=== PATIENT | male | born 1980 | race Caucasian/White ===

== ENCOUNTER 2018-03-21 08:37 | Emergency (ER) | payer BC ==
[~2018-03-21] VITALS: Ht 180.3 cm; Wt 90.9 kg
[2018-03-21 09:34] LABS: HEMATOCRIT 53.8 % (38.0-50.0); HEMOGLOBIN 18.5 G/DL (12.5-16.6); MCH 31.3 PG (29.0-34.0); MCHC 34.4 G/DL (30.0-36.0); MCV 90.9 FL (86-99); PLATELET COUNT 224 K/uL (156-360); RBC DIS.WIDTH-CV 12.5 % (11.8-14.6); RBC DIS.WIDTH-SD 41.2 % (39-53); RED BLOOD COUNT 5.92 M/uL (4.00-5.50); WHITE BLOOD COUNT 7.1 K/uL (4.1-10.2)
[2018-03-21 09:36] LABS: ALBUMIN 5.1 g/dL (3.2-4.8); CHLORIDE 100 mEq/L (99-109); POTASSIUM 4.3 mEq/L (3.7-5.4); SODIUM 134 mEq/L (136-147)
[2018-03-21 09:39] LABS: GLUCOSE 139 mg/dL (70-99); TOTAL PROTEIN 8.7 g/dL (6.4-8.3)
[2018-03-21 09:42] LABS: ALKALINE PHOSPHATASE 118 IU/L (3-129); CREATININE 1.4 mg/dL (0.6-1.3); GFR ESTIMATE (CALCULATED) > 59 mL/min/ (58.99-99999)
[2018-03-21 09:43] LABS: UREA NITROGEN (BUN) 20 mg/dL (9-23)
[2018-03-21 09:44] LABS: AST (GOT) 36 IU/L (2-34)
[2018-03-21 09:45] LABS: ALT (GPT) 38 IU/L (3-49)
[2018-03-21 10:54] LABS: APPEARANCE CLEAR ((CLEAR)); BILIRUBIN NEGATIVE; BLOOD NEGATIVE; COLOR AMBER ((YELLOW)); GLUCOSE (STRIP) NEGATIVE; KETONES 5; LEUKOCYTES NEGATIVE; NITRITE NEGATIVE; PROTEIN (STRIP) 30; SPECIFIC GRAVITY 1.033 (1.000-1.030); UCUL ADDED? NO
[2018-03-21] MEDS ORDERED: BENTYL10 MG PO (11:04)
[2018-03-21] MEDS ORDERED: MAALOX ADVANCE355 ML PO (11:04)
[2018-03-21 12:37] VITALS: BP 139/77
== END 2018-03-21 12:42 | disposition home or self-care (01) ==
LOC: EME 08:37
DX: R11.2 Nausea with vomiting, unspecified (principal); R19.7 Diarrhea, unspecified; R10.9 Unspecified abdominal pain; F17.200 Nicotine dependence, unspecified, uncomplicated
CPT/HCPCS: 80053; 81003; 85027; 99281; 99285; J1200; J2765; J7030